=== PATIENT | female | born 1975 | race Caucasian/White ===

== ENCOUNTER 2017-12-06 18:20 | Emergency (ER) | payer MEDICAID ==
[~2017-12-06] VITALS: Ht 160 cm; Wt 56.8 kg
[~2017-12-06 18:20] MED LIST: DEXT15SY PO; METH4TAB3 PO; METH500T PO; MULT1TAB74 PO; PROP10TA10 PO
[2017-12-06] MEDS ORDERED: ketorolac trometh. 30mg/ml inj. IV ONE (19:10)
[2017-12-06] MEDS ORDERED: orphenadrine citrate 60mg/2ml inj. IM ONE (19:10)
[2017-12-06] MEDS ORDERED: morphine 4 MG/ML inj SYRINge IV ONE (19:10)
[2017-12-06] MEDS ORDERED: diazepam 5mg tablet PO ONE (19:10)
[2017-12-06] MEDS ORDERED: HYDR-565 PO (19:50)
[2017-12-06] MEDS ORDERED: DIAZ5TAB PO (19:50)
[2017-12-06 20:23] VITALS: BP 192/102
== END 2017-12-06 20:28 | disposition home or self-care (01) ==
LOC: ER 18:20
DX: S33.5XXA Sprain of ligaments of lumbar spine, initial encounter (principal); M62.830 Muscle spasm of back; I10 Essential (primary) hypertension; G89.29 Other chronic pain; Z90.49 Acquired absence of other specified parts of digestive tract; Z98.890 Other specified postprocedural states; Z88.8 Allergy status to other drugs, medicaments and biological substances; X50.0XXA Overexertion from strenuous movement or load, initial encounter; Y93.89 Activity, other specified; Y92.89 Other specified places as the place of occurrence of the external cause; Y99.8 Other external cause status
CPT/HCPCS: 96372; 96374; 99284; J2270; J2360; J1885

== ENCOUNTER 2018-01-26 15:28 | Emergency (ER) | payer MEDICAID ==
[~2018-01-26] VITALS: Ht 160 cm; Wt 58.0 kg
[~2018-01-26 15:28] MED LIST changes: +CYCL-1 PO; +DIAZ5TAB PO; +HYDR-3965 PO
[2018-01-26 16:35] VITALS: BP 173/95
[2018-01-26] MEDS ORDERED: TRAM50TA2 PO (18:33)
== END 2018-01-26 18:44 | disposition home or self-care (01) ==
LOC: ER 15:28
DX: M54.2 Cervicalgia (principal); M54.9 Dorsalgia, unspecified; G89.29 Other chronic pain; Z90.49 Acquired absence of other specified parts of digestive tract
CPT/HCPCS: 99283

== ENCOUNTER 2018-03-12 06:10 | Emergency (ER) | payer MEDICAID, OTHER ==
[~2018-03-12] VITALS: Ht 165.1 cm; Wt 58.0 kg
[~2018-03-12 06:10] MED LIST changes: -HYDR-3965 PO
[2018-03-12 06:13] VITALS: BP 180/120
[2018-03-12] MEDS ORDERED: sulfamethoxazole/trimethoprim DS (800/160mg) tablet PO ONE (06:35)
[2018-03-12] MEDS ORDERED: SULF1TAB49 PO (06:38)
[2018-03-12] MEDS ORDERED: HYDR-565 PO (06:38)
== END 2018-03-12 07:04 | disposition home or self-care (01) ==
LOC: ER 06:11
DX: L02.215 Cutaneous abscess of perineum (principal); I10 Essential (primary) hypertension; G89.29 Other chronic pain; Z90.49 Acquired absence of other specified parts of digestive tract; Z98.84 Bariatric surgery status; Z88.8 Allergy status to other drugs, medicaments and biological substances; Z79.899 Other long term (current) drug therapy
CPT/HCPCS: 99283

== ENCOUNTER 2018-04-06 17:43 | Emergency (ER) | payer OTHER ==
[~2018-04-06] VITALS: Ht 160 cm; Wt 59.9 kg
[~2018-04-06 17:43] MED LIST changes: +HYDR-565 PO; +SULF1TAB49 PO
[2018-04-06] MEDS ORDERED: diazepam 5mg tablet PO ONE (20:15)
[2018-04-06] MEDS ORDERED: HYDROcodone/acetaminophen 10/325mg tab PO ONE (20:15)
[2018-04-06] MEDS ORDERED: DICL100G15 TOP (22:06)
[2018-04-06] MEDS ORDERED: LIDO700A32 TOP (22:06)
[2018-04-06 22:13] VITALS: BP 210/113
== END 2018-04-06 22:16 | disposition home or self-care (01) ==
LOC: ER 17:44
DX: G95.89 Other specified diseases of spinal cord (principal); M54.5 Low back pain; I16.0 Hypertensive urgency; I10 Essential (primary) hypertension; Z90.49 Acquired absence of other specified parts of digestive tract; Z98.51 Tubal ligation status; Z88.8 Allergy status to other drugs, medicaments and biological substances; Z79.899 Other long term (current) drug therapy
CPT/HCPCS: 99283; 99284

== ENCOUNTER 2018-11-18 03:25 | Inpatient (IN) | payer MEDICAID, OTHER | END 2018-11-20 17:16 | disposition home or self-care (01) | LOC: ER 03:25 → ED HOLD 08:33 → PCU 3S 11:45 | PROC: 30233N1 Transfusion of Nonautologous Red Blood Cells into Peripheral Vein, Percutaneous Approach (ICD-10-PCS; principal; ~2018-11-18) | DX: I21.A1 Myocardial infarction type 2 (principal); I50.21 Acute systolic (congestive) heart failure; J90 Pleural effusion, not elsewhere classified; I27.20 Pulmonary hypertension, unspecified; I16.0 Hypertensive urgency; D50.9 Iron deficiency anemia, unspecified ==

== ENCOUNTER 2018-11-22 15:22 | Emergency (ER) | payer MEDICAID, OTHER ==
[~2018-11-22] VITALS: Ht 160 cm; Wt 63.0 kg
[~2018-11-22 15:22] MED LIST changes: +ASPI-1071 PO; +CARV-50 PO; -CYCL-1 PO; -DEXT15SY PO; -DIAZ5TAB PO; +FERR325T28 PO; +FURO20TA4 PO; -HYDR-565 PO; +LISI-600 PO; -METH4TAB3 PO; -METH500T PO; -PROP10TA10 PO; -SULF1TAB49 PO; +VITC500T PO
[2018-11-22 15:30] VITALS: BP 149/88
[2018-11-22] MEDS ORDERED: LIDO20SO16 PO (16:35)
== END 2018-11-22 16:47 | disposition home or self-care (01) ==
LOC: ER 15:22
DX: J02.9 Acute pharyngitis, unspecified (principal); G89.29 Other chronic pain; I11.0 Hypertensive heart disease with heart failure; I50.9 Heart failure, unspecified; Z90.49 Acquired absence of other specified parts of digestive tract; Z88.6 Allergy status to analgesic agent; Z88.8 Allergy status to other drugs, medicaments and biological substances; Z79.82 Long term (current) use of aspirin; Z79.899 Other long term (current) drug therapy
CPT/HCPCS: 99283

== ENCOUNTER 2018-11-26 18:06 | Emergency (ER) | payer MEDICAID ==
[~2018-11-26] VITALS: Ht 160 cm; Wt 61.4 kg
[~2018-11-26 18:06] MED LIST changes: +LIDO20SO16 PO
[2018-11-26 22:36] VITALS: BP 152/89
== END 2018-11-26 22:38 | disposition home or self-care (01) ==
LOC: ER 18:06
DX: R42 Dizziness and giddiness (principal); R06.02 Shortness of breath; I11.0 Hypertensive heart disease with heart failure; I50.9 Heart failure, unspecified; G89.29 Other chronic pain; F41.9 Anxiety disorder, unspecified; Z90.89 Acquired absence of other organs; Z90.49 Acquired absence of other specified parts of digestive tract; Z88.5 Allergy status to narcotic agent; Z88.8 Allergy status to other drugs, medicaments and biological substances; Z79.82 Long term (current) use of aspirin
CPT/HCPCS: 71045; 93005; 99283

== ENCOUNTER 2020-10-10 19:53 | Emergency (ER) | payer MEDICAID ==
[~2020-10-10] VITALS: Ht 160 cm; Wt 61.4 kg
[~2020-10-10 19:53] MED LIST changes: -ASPI-1071 PO; -FERR325T28 PO; -LIDO20SO16 PO; -LISI-600 PO; +LISI40TA4 PO; +MULT-620 PO; -MULT1TAB74 PO; +ONDA4TAB6 PO
[2020-10-10] MEDS ORDERED: ketorolac trometh inj. 60 MG/2 ML VIAL IM ONE (21:25)
[2020-10-10] MEDS ORDERED: acetaminophen 325mg tablet PO ONE (21:25)
[2020-10-10] MEDS ORDERED: HYDROcodone/acetaminophen 5mg/325mg tablet PO ONE (21:25)
[2020-10-10 21:52] VITALS: BP 167/88
== END 2020-10-10 21:54 | disposition home or self-care (01) ==
LOC: ER 19:54
DX: R07.89 Other chest pain (principal); R51.9 Headache, unspecified; I11.0 Hypertensive heart disease with heart failure; I50.9 Heart failure, unspecified; G89.29 Other chronic pain; F41.9 Anxiety disorder, unspecified; Z90.89 Acquired absence of other organs; Z90.49 Acquired absence of other specified parts of digestive tract; Z98.890 Other specified postprocedural states; Z72.89 Other problems related to lifestyle; Z88.6 Allergy status to analgesic agent; Z88.8 Allergy status to other drugs, medicaments and biological substances; Z79.899 Other long term (current) drug therapy
CPT/HCPCS: 96372; 99283; J1885